=== PATIENT | male | born 2005 | race Hispanic/Latino ===

== ENCOUNTER 2024-08-07 20:09 | Emergency (ER) | payer SELFPAY ==
[~2024-08-07] VITALS: Ht 160 cm; Wt 62.0 kg
[2024-08-07] MEDS ORDERED: CEPHALEXIN MONOHYDRATE 500 MG/CAP PO ONE (20:25)
[2024-08-07] MEDS ORDERED: ACETAMINOPHEN 500 MG TAB PO ONE (20:25)
[2024-08-07] MEDS ORDERED: DICLOFENAC SODIUM 75 MG/TAB PO ONE (20:25)
[2024-08-07] MEDS ORDERED: KEFLEX500 MG PO (20:29)
[2024-08-07 20:31] VITALS: BP 155/93
== END 2024-08-07 21:22 | disposition home or self-care (01) | DRG 607 ==
LOC: ED 20:09
DX: L60.0 Ingrowing nail (principal)